=== PATIENT | male | born 1980 | race Caucasian/White ===

== ENCOUNTER → 2021-05-13 09:33 | Outpatient (BNVA) | payer MEDICAID, SELFPAY | PROVIDERS: Visit Provider Counselor Mental Health | DX: F32.9 Major depressive disorder, single episode, unspecified (principal); F41.9 Anxiety disorder, unspecified | CPT/HCPCS: 90837; 90834 ==

== ENCOUNTER → 2021-05-28 10:57 | Outpatient (BNVA) | payer MEDICAID, SELFPAY | PROVIDERS: Visit Provider Counselor Mental Health | DX: F32.9 Major depressive disorder, single episode, unspecified (principal); F41.9 Anxiety disorder, unspecified | CPT/HCPCS: 90837; 90834 ==

== ENCOUNTER → 2021-06-04 10:48 | Outpatient (BNVA) | payer MEDICAID, SELFPAY | PROVIDERS: Visit Provider Counselor Mental Health | DX: F32.9 Major depressive disorder, single episode, unspecified (principal); F41.9 Anxiety disorder, unspecified | CPT/HCPCS: 90837; 90834 ==

== ENCOUNTER → 2021-06-07 11:48 | Outpatient (BNVA) | payer MEDICAID, SELFPAY | PROVIDERS: Visit Provider Family Medicine Adult Medicine | DX: Z71.1 Person with feared health complaint in whom no diagnosis is made (principal); F41.9 Anxiety disorder, unspecified; F32.A Depression, unspecified; K50.90 Crohn's disease, unspecified, without complications | CPT/HCPCS: 80053; 85025; 86592; 87491; 87591 ==

== ENCOUNTER → 2021-06-14 11:25 | Outpatient (BNVA) | payer MEDICAID, SELFPAY | PROVIDERS: Visit Provider Counselor Mental Health | DX: F32.9 Major depressive disorder, single episode, unspecified (principal); F41.9 Anxiety disorder, unspecified | CPT/HCPCS: 90837; 90834 ==

== ENCOUNTER → 2021-06-21 10:18 | Outpatient (BNVA) | payer MEDICAID, SELFPAY | PROVIDERS: Visit Provider Counselor Mental Health | DX: F90.9 Attention-deficit hyperactivity disorder, unspecified type (principal); F41.9 Anxiety disorder, unspecified; F32.A Depression, unspecified | CPT/HCPCS: 90837; 90834 ==

== ENCOUNTER → 2021-07-05 12:50 | Outpatient (BNVA) | payer MEDICAID, SELFPAY | PROVIDERS: Visit Provider Counselor Mental Health | DX: F41.9 Anxiety disorder, unspecified (principal); F32.A Depression, unspecified | CPT/HCPCS: 90837; 90834 ==

== ENCOUNTER → 2021-07-12 10:12 | Outpatient (BNVA) | payer MEDICAID, SELFPAY | PROVIDERS: Visit Provider Counselor Mental Health | DX: F41.9 Anxiety disorder, unspecified (principal); F32.A Depression, unspecified; F90.9 Attention-deficit hyperactivity disorder, unspecified type | CPT/HCPCS: 90837; 90834 ==

== ENCOUNTER → 2021-07-26 10:51 | Outpatient (BNVA) | payer MEDICAID, SELFPAY | PROVIDERS: Visit Provider Counselor Mental Health | DX: F90.9 Attention-deficit hyperactivity disorder, unspecified type (principal); F41.9 Anxiety disorder, unspecified; F32.A Depression, unspecified | CPT/HCPCS: 90834 ==

== ENCOUNTER 2024-08-22 22:33 | Emergency (ER) | payer MEDICAID, SELFPAY ==
[2024-08-22 22:35] VITALS: BP 136/84; PULSE 95; RESP 16; TEMP 37.2; O2SAT 97; BMI 17.0
--- NOTE | 2024-08-22 23:07 | XRR_ITS ---
PROCEDURE INFORMATION: Exam: XR Right Hand Exam date and time: 08/22/2024 11:22 PM Age: 43 years old Clinical indication: Injury or trauma; Fall; Laceration; Right; Index finger; Additional info: Fall/index finger pain TECHNIQUE: Imaging protocol: Radiologic exam of the right hand. Views: 3 or more views. COMPARISON: No relevant prior studies available. FINDINGS: Bones/joints: No fracture. No dislocation. No bone erosion. Soft tissues: Unremarkable. Other findings: Overlying bandage limits evaluation. XR/XR hand RT min 3V* [id number] IMPRESSION: No fracture seen.
--- NOTE | 2024-08-22 23:15 | W.ED.WOUNDLC ---
HPI - Wound/Laceration General: Chief Complaint: Wound/Laceration Stated Complaint: Rt Hand Index Finger Injury Time Seen by Provider: 08/22/24 22:34 Source: patient Mode of arrival: ambulatory Limitations: no limitations History of Present Illness: Patient is a 43-year-old male who presents the emergency department with right index finger injury that he suffered couple of hours prior to coming in. He states that he fell onto his right hand, causing laceration as he also hit it on a piece of gravel. Tetanus is not up-to-date. No blood thinner use, no other injuries. He did not hit his head. Does admit to alcohol use tonight. No distal neurovascular symptoms. No foreign body or contamination. No active bleeding at this time. Onset (ago): hour(s) Extremity Location: Right: hand (Index finger) Place: outdoors Patient tetanus UTD: No Context: accidental Associated symptoms: Reports no associated symptoms; Denies chills, fever(s), nausea or vomiting Treatments prior to arrival: bandage Related Data Previous Rx's ?Medication ?Instructions ?Recorded buspirone 10 mg tablet 10 mg PO TID Anxiety #90 tabs 06/07/21 chlorpromazine 25 mg tablet 25 mg PO Q6H PRN nausea and 06/07/21 crohn's 30 days #60 tabs duloxetine 30 mg capsule,delayed 30 mg PO QA Mental health 30 days 06/07/21 release #30 caps duloxetine 60 mg capsule,delayed 60 mg PO .q Mental health 30 06/07/21 release days #30 caps ergocalciferol (vitamin D2) 1,250 1,250 mcg PO DAILY Vit D 06/07/21 mcg (50,000 unit) capsule (Vitamin deficiency 30 days #30 caps D2) pregabalin 50 mg capsule 50 mg PO TID Chronic pain #90 caps 06/07/21 sulfasalazine 500 mg 0.5 g PO BID Crohn's 30 days #60 06/07/21 tablet,delayed release tabs dicyclomine 10 mg capsule 10 mg PO .q6hr PRN Abdominal 06/08/21 cramping #60 caps naproxen 500 mg tablet 500 mg PO BID PRN arthritis & pain 06/10/21 #60 tabs cephalexin 500 mg capsule 500 mg PO BID 5 days #10 caps 08/22/24 Allergies Allergy/AdvReac Type Severity Reaction Status Date / Time codeine Allergy Severe ALGY-Anaphy Verified 06/07/21 10:39 laxis Review of Systems General: Reports: 10 or more systems reviewed and unremarkable except in HPI and below Const: Denies: fever(s) or chills Card: Denies: chest pain Resp: Denies: dyspnea GI: Denies: abdominal pain, nausea, vomiting or diarrhea Musc: Denies: extremity pain or joint pain Skin/Breast: Reports: new lesions (Laceration right index finger); Denies: rash, skin pain or skin tenderness Neuro: Denies: headache(s) PFSH ED PFSH: Medical History IBS (irritable colon syndrome) Vitamin D deficiency disease Chronic abdominal pain Concern about STD in male without diagnosis Anxiety and depression Loeys-Dinesh syndrome ADHD Acute Crohn's disease Rheumatoid arthritis HSV-1 (herpes simplex virus 1) infection Surgical History Hx of tonsillectomy Hx of hernia repair Family History Mother Diabetes Other Fibromyalgia Hypertension Social History Smoking and tobacco/nicotine status: current every day tobacco/nicotine user Alcohol intake: current Alcohol intake frequency: few times a month Substance/Drug Use: current Substance/Drug use frequency: few times a week Marital status: Current occupational status: disabled Physical Exam Const: COMMON NORMALS: no acute distress, average body habitus, patient oriented x3, no limitations, healthy appearing, alert and well nourished HENMT: COMMON NORMALS: normocephalic and atraumatic HEAD & SCALP: normocephalic and atraumatic Neck/C-Spine: COMMON NORMALS: full ROM, no lymphadenopathy, supple and no meningeal signs Resp: COMMON NORMALS: normal respiratory effort, No use of accessory muscles and clear to auscultation bilaterally AUSCULTATION: clear to auscultation bilaterally Cardio: COMMON NORMALS: regular rate and regular rhythm RATE: regular rate RHYTHM: regular rhythm Extremity: COMMON NORMALS: full ROM and capillary refill normal NARRATIVE EXTREMITY EXAM: Full flexion and extension of the right index finger, distal neurovascular exam intact Neuro: COMMON NORMALS: patient oriented x3 SENSORIUM/ORIENTATION: Yes alert MENINGEAL SIGNS: Yes no meningeal signs Skin: COMMON NORMALS: turgor normal NARRATIVE SKIN EXAM: Superficial, 2 cm flap-like laceration overlying patient's right second PIP joint. GENERAL SKIN EXAM: turgor normal Procedures Laceration Laceration 1: Site: hand Side (If applicable): right (index finger) Size (cm): 2 Description: flap Depth: simple, single layer Pre-repair: wound explored and irrigated extensively Skin layer closed with: nylon Size (cm): 6-0 Number of sutures: 5 Technique: simple, interrupted Nerve Block Nerve Block 1: Local Anesthetic: lidocaine 2% Amount of anesthesia used (mL): 6 Side: right Nerve Blocks: digital Procedure Successful: Yes Patient Tolerated Procedure: well Complications: none Course Vital Signs: Vital signs: Vital Signs Temperature 98.9 F 08/22/24 22:35 Pulse Rate 95 08/22/24 22:35 Respiratory Rate 16 08/22/24 22:35 Blood Pressure 136/84 08/22/24 22:35 Pulse Oximetry 97 08/22/24 22:35 MDM - Wound/Laceration Medical Decision Making Patient presented for eval of wound to right index finger he suffered a couple of hours. He had good range of motion of the finger and no neurovascular deficits. No foreign body or contamination at the lack. This was repaired, see procedure note. Instructed him to have the sutures out in 5 days, started on prophylactic antibiotics and his tetanus was updated today. Discussed return precautions including any signs of infection, he verbalized understanding. No radiology studies performed this visit Discharge Plan Discharge Patient Disposition: Home Clinical Impression: Laceration of right index finger Qualifiers: Encounter type: initial encounter Damage to nail status: without damage Foreign body presence: without foreign body Qualified Code(s): S61.210A - Laceration without foreign body of right index finger without damage to nail, initial encounter Condition: Stable Prescriptions: New cephalexin 500 mg capsule 500 mg PO BID 5 Days Qty: 10 0RF No Action buspirone 10 mg tablet 10 mg PO TID Qty: 90 5RF Rx Instructions: 340 B medications chlorpromazine 25 mg tablet 25 mg PO Q6H PRN (Reason: nausea and crohn's) 30 Days Qty: 60 5RF Rx Instructions: 340 B medications pregabalin 50 mg capsule 50 mg PO TID Qty: 90 5RF duloxetine 30 mg capsule,delayed release(DR/EC) 30 mg PO QAM 30 Days Qty: 30 5RF Rx Instructions: 340 B medications duloxetine 60 mg capsule,delayed release(DR/EC) 60 mg PO .qhs 30 Days Qty: 30 5RF Rx Instructions: 340 B medications sulfasalazine 500 mg tablet,delayed release (DR/EC) 0.5 g PO BID 30 Days Qty: 60 5RF Rx Instructions: 340 B medications ergocalciferol (vitamin D2) [Vitamin D2] 1,250 mcg (50,000 unit) capsule 1,250 mcg PO DAILY 30 Days Qty: 30 5RF dicyclomine 10 mg capsule 10 mg PO .q6hr PRN (Reason: Abdominal cramping) Qty: 60 3RF naproxen 500 mg tablet 500 mg PO BID PRN (Reason: arthritis & pain) Qty: 60 0RF Discharge Orders: Discharge ED (Routine); Ordered 08/22/24 Ordered By: Jelani Romeo Patient Instructions: Finger Laceration (ED) Activity Restrictions/Additional Instructions: Sutures out in 5 days. Antibiotics as prescribed. Do not soak the wound, keep dressed appropriately as we discussed. Ibuprofen/Tylenol. Return with any signs of infection. Print Language: Sammarinese Coding Level of Care Code ED Print Line Supervisor for Phani Mercado
[2024-08-22] MEDS: tetanus-dipt-pertussis 0.5 mL SDV IM (23:20)
[2024-08-22] MEDS: lidocaine 1% INJ 20 mL 10 ML INJECTION (23:21)
== END 2024-08-23 00:18 | disposition home or self-care (01) ==
PROVIDERS: Emergency Provider Physician Assistant
DX: S61.210A Laceration without foreign body of right index finger without damage to nail, initial encounter (principal); Z72.0 Tobacco use; W19.XXXA Unspecified fall, initial encounter
CPT/HCPCS: 12001; 73130; 90471; 90715; 99283; J9999